=== PATIENT | female | born 1960 | race Caucasian/White ===

== ENCOUNTER 2017-06-17 10:58 | Emergency (ER) ==
[2017-06-17 11:03] VITALS: BP 165/76; TEMP 98.9; BMI 37.5
[2017-06-17 11:37] LABS: BASOPHILS % (AUTO) 0.6 % (0.0-3.0); EOSINOPHILS # (AUTO) 0.1 K/ul (0.0-0.7); EOSINOPHILS % (AUTO) 2.3 % (0.0-7.0); HEMATOCRIT 37.2 % (37.0-47.0); HEMOGLOBIN 12.6 g/dl (12.0-16.0); IMMATURE GRANULOCYTE % (AUTO) 0.2 % (0.0-5.0); LYMPHOCYTES # (AUTO) 1.7 K/uL (0.60-3.4); LYMPHOCYTES % (AUTO) 34.4 (10.0-50.0); MEAN CORPUSCULAR HGB CONC 33.9 (31.8-35.4); MEAN CORPUSCULAR VOLUME 88.6 fl (81.0-99.0); MONOCYTES # (AUTO) 0.5 K/uL (0.4-2.0); MONOCYTES % (AUTO) 10.9 (0-10); NEUTROPHILS # (AUTO) 2.5 K/ul (2.0-6.9); NEUTROPHILS % (AUTO) 51.6; PLATELET COUNT 216 10^3/uL (140-440); WHITE BLOOD COUNT 4.86 K/ul (4.6-10.2)
[2017-06-17 11:38] LABS: ADD URINE MICROSCOPIC NO; BILIRUBIN,URINE Negative (NEGATIVE); KETONES,URINE Negative (NEGATIVE); LEUKOCYTE ESTERASE ,URINE Negative (NEGATIVE); NITRITE,URINE Negative (NEGATIVE); PH,URINE 5.5 (5-9); PROTEIN,URINE Negative (NEGATIVE); URINE, BLOOD Negative (NEGATIVE)
[2017-06-17 12:06] LABS: ERYTHROCYTE SEDIMENTATION RATE 13 mm/hr (0-20); ESR INTERNAL QC INTERNAL QC VALID
--- NOTE | 2017-06-17 12:10 | CT ---
EXAM: CT abdomen pelvis without contrast TECHNIQUE: Helical axial CT of the abdomen and pelvis was performed without contrast with coronal an d sagittal reconstructions. COMPARISON: CT abdomen pelvis from 08/21/2049 HISTORY: Abdominal pain FINDINGS: There is no acute abnormality. Specifically there is no mesenteric inflammation, free air, free fluid or bowel wall thickening or edema or pathologic lymph nodes or obstruction or ileus. The liver, spleen, pancreas,and adrenal glands show no acute abnormality. Lung bases are well-aerate d. There is no hiatal hernia. There has been prior cholecystectomy. There is no biliary or pancreati c ductal dilatation. There are no suspicious renal masses or large cysts and no hydronephrosis. There are no kidney stones . Both ureters demonstrate normal course and caliber. There is no filling defect in the urinary blad shaun. The bladder is decompressed. There has been prior hysterectomy. There are pelvic phleboliths. The appendix is not seen. There are no significant colonic diverticula. There are no abdominal wall hernias. There is calcific atherosclerosis of the aorta. There are no acute osseous abnormalities. IMPRESSION: 1. No definite acute abnormality in the abdomen or pelvis. Specifically there is no free fluid or i nflammation or free air or bowel obstruction or ileus. 2. Prior cholecystectomy and prior hysterectomy. 3. Appendix is not visualized. Please correlate with history of possible appendectomy.
[2017-06-17 12:13] LABS: ALANINE AMINOTRANSFERASE 13 U/L (12-78); ALBUMIN 3.1 g/dL (3.4-5.0); ALBUMIN/GLOBULIN RATIO 0.79; ALKALINE PHOSPHATASE 102 U/L (42-98); AMYLASE 26 U/L (25-115); ANION GAP 13.5; ASPARTATE AMINO TRANSFERASE 36 U/L (15-37); BILIRUBIN,TOTAL 0.27 mg/dL (0.00-1.20); BLOOD UREA NITROGEN 24 mg/dL (7-18); BUN/CREATININE RATIO 22.64; CALCIUM 8.4 mg/dL (8.2-10.2); CARBON DIOXIDE 26 mmol/L (21-32); CHLORIDE 104 mmol/L (98-107); CREATINE KINASE 192 U/L; CREATININE 1.06 mg/dL (0.60-1.30); GLUCOSE 129 mg/dL (70-110); LIPASE 22 U/L (8-78); POTASSIUM 3.5 mmol/L (3.5-5.10); SODIUM 140 mmol/L (136-145)
[2017-06-17 12:14] LABS: CREATINE KINASE MB 1.7 ng/ml (0.0-3.6)
--- NOTE | 2017-06-17 12:20 | ED.PDOC ---
General ED Provider: Dr. KEATON PALACIOS-ER Chief Complaint: Abdominal Pain Stated Complaint: i had to strain hard to get my bowels to move Time Seen by Physician: 11:00 Mode of Arrival: Walk-In Information Source: Patient Exam Limitations: No limitations Primary Care Provider: SALINA OVIEDO Nursing and Triage Documentation Reviewed and Agree: Yes GI Complaint Exam - Abdominal Pain Complaint/Exam Onset: Gradual Duration: 3 days Symptoms Are: Still present Timing: Intermittent Initial Severity: Mild Current Severity: Moderate Location of Pain: Diffuse Character: Reports: Dull, Aching Aggravating: Reports: None Alleviating: Reports: Spontaneous resolution Associated Signs and Symptoms: Reports: Constipation Related Surgical History: Reports: Cholecystectomy, Appendectomy, DIANA, BSO Patient Rh Status: Unknown Quality Indicator For Non-Traumatic Chest Pain/Syncope: EKG Performed Review of Systems - Review Of Systems Constitutional: Reports: No symptoms Eyes: Reports: No symptoms Ears, Nose, Mouth, Throat: Reports: No symptoms Respiratory: Reports: No symptoms Cardiac: Reports: No symptoms GI: Reports: Constipated : Reports: No symptoms Musculoskeletal: Reports: No symptoms Skin: Reports: No symptoms Neurological: Reports: No symptoms Endocrine: Reports: No symptoms Hematologic/Lymphatic: Reports: No symptoms All Other Systems: Reviewed and Negative Past Medical History - Past Medical History Previously Healthy: Yes Endocrine: Reports: DM 2 Cardiovascular: Reports: Hypertension Respiratory: Reports: None Hematological: Reports: None Gastrointestinal: Reports: None Genitourinary: Reports: None Neuro/Psych: Reports: Anxiety, Depression Musculoskeletal: Reports: Other Cancer: Reports: None Last Menstrual Period: HYSTERECTOMY Other Pertinent Past Medical History: Arthritis, Mobid obesity - Surgical History General Surgical History: Reports: Hysterectomy, Cholecystectomy, Orthopedic ( lumbar and cervical spine surg, Surg Right elbow) - Family History Family History: Reports: None - Social History Smoking Status: Former smoker Hx Substance Use: No Alcohol Screening: None Lives: With family Physical Exam - Physical Exam Appearance: Well-appearing, No pain distress, Well-nourished Eyes: EMERALD, EOMI, Conjunctiva clear ENT: Ears normal, Nose normal, Oropharynx normal Neck: Supple Respiratory: Airway patent, Breath sounds clear, Breath sounds equal, Respirations nonlabored Cardiovascular: RRR GI/: Soft, Nontender, No masses, Bowel sounds normal, No Organomegaly Musculoskeletal: Normal strength, ROM intact, No edema, No calf tenderness Skin: Warm, Dry, Normal color Neurological: Sensation intact Psychiatric: Affect appropriate, Mood appropriate Interpretation - Radiology Interpretation Radiology Interpretation By: Radiologist Radiology Results: Negative Exam Interpreted: CT Scan - EKG Interpretation Time of EKG #1: 12:20 Rate: Normal Rhythm: Sinus Ectopy: None [place]: NL ST Segment: Normal Critical Care Note - Critical Care Note Total Time (mins): 0 Course - Course Hematology/Chemistry: 06/17/17 11:30 06/17/17 11:30 Orders, Labs, Meds: Lab Review 06/17/17 06/17/17 06/17/17 11:30 11:30 11:30 WBC 4.86 RBC 4.20 Hgb 12.6 Hct 37.2 MCV 88.6 MCH 30.0 MCHC 33.9 RDW Coeff of Ellen 12.7 Plt Count 216 Immature Gran % (Auto) 0.2 Neut % (Auto) 51.6 Lymph % (Auto) 34.4 Bowie % (Auto) 10.9 H Eos % (Auto) 2.3 Baso % (Auto) 0.6 Immature Gran # (Auto) 0.0 Neut # 2.5 Lymph # 1.7 Bowie # 0.5 Eos # 0.1 Baso # 0.0 ESR 13 Sodium 140 Potassium 3.5 Chloride 104 Carbon Dioxide 26 Anion Gap 13.5 BUN 24 H Creatinine 1.06 Estimated GFR (MDRD) 54.00 BUN/Creatinine Ratio 22.64 Glucose 129 H Calcium 8.4 Total Bilirubin 0.27 AST 36 ALT 13 Alkaline Phosphatase 102 H Total Creatine Kinase 192 CK-MB (CK-2) 1.7 CK-MB (CK-2) % 0.92860 Troponin I < 0.0100 Total Protein 7.0 Albumin 3.1 L Globulin 3.9 Albumin/Globulin Ratio 0.79 Amylase 26 Lipase 22 Urine Color Yellow Urine Clarity Clear Urine pH 5.5 Ur Specific [place] 1.015 Urine Protein Negative Urine Glucose (UA) Negative Urine Ketones Negative Urine Blood Negative Urine Nitrite Negative Urine Bilirubin Negative Urine Urobilinogen 0.2 Ur Leukocyte Esterase Negative Orders Category Date Time Status EKG-(ED ONLY) Stat CARDIO 06/17/17 11:09 Completed AMYLASE Stat LAB 06/17/17 11:30 Completed CBC W/ AUTO DIFF Stat LAB 06/17/17 11:30 Completed COMPREHENSIVE METABOLIC PANEL Stat LAB 06/17/17 11:30 Completed CREATINE KINASE Stat LAB 06/17/17 11:30 Completed ESR Stat LAB 06/17/17 11:30 Completed LIPASE Stat LAB 06/17/17 11:30 Completed TROPONIN I Stat LAB 06/17/17 11:30 Completed URINALYSIS C & S IF INDICATED Stat LAB 06/17/17 11:[address] ABDOMEN/PELVIS WO CONTRAST Stat RADS 06/17/17 11:09 Completed Vital Signs: Temp Pulse Resp BP Pulse Ox 06/17/17 10:59 98.9 F 94 H 20 165/76 H 97 Departure - Departure Time of Disposition: 12:20 Disposition: HOME SELF-CARE Discharge Problem: Constipation Qualifiers: Constipation type: unspecified constipation type Qualified Code(s): K59.00 - Constipation, unspecified Instructions: Constipation (ED), High Fiber Diet (ED) Condition: Good Pt referred to PMD for follow-up: Yes Additional Instructions: miralax 17gr q daily=--f/u with pcp and discuss colonoscopy Allergies/Adverse Reactions: Allergies propoxyphene napsylate [From Darvocet-N 100] Adverse Reaction (Verified 11:03) acromycin Adverse Reaction (Uncoded 06/17/17 11:03) Home Medications: Ambulatory Orders Aspirin [Aspirin Chewable] 81 mg PO DAILYWM 11/29/13 Dicyclomine HCl [Bentyl] 10 mg PO BID 11/29/13 Diphenhydramine HCl [Benadryl] 50 mg PO BEDTIME 11/29/13 Oxycodone HCl/Acetaminophen [Endocet 10-325 mg Tablet] 1 each PO QID 11/29/13 Lisinopril/Hydrochlorothiazide [Lisinopril-Hctz 10-12.5 mg Tab] 1 each PO DAILY 08/21/14 Topiramate [Topamax] 50 mg PO BEDTIME 05/13/15 Amlodipine Besylate 5 mg PO DAILY 06/17/17 Clonazepam [Klonopin] 1 mg PO DAILY 06/17/17 Lamotrigine [Lamictal] 25 mg PO DAILY 06/17/17 Tizanidine HCl [Zanaflex] 4 mg PO DAILY 06/17/17 Venlafaxine HCl [Effexor] 75 mg PO DAILY 06/17/17 Disposition Discussed With: Patient
== END 2017-06-17 12:31 | disposition home or self-care (01) ==
LOC: ED 10:58
DX: K59.00 Constipation, unspecified (principal); R10.84 Generalized abdominal pain; E11.9 Type 2 diabetes mellitus without complications; I10 Essential (primary) hypertension; Z79.899 Other long term (current) drug therapy
CPT/HCPCS: 36415; 80053; 81001; 82150; 82550; 82553; 83690; 84484; 85025; 85651; 93005; 93010; 99283

== ENCOUNTER 2018-02-18 16:20 | Emergency (ER) | payer OTHER ==
[2018-02-18 16:28] VITALS: BP 166/114; TEMP 99.1; BMI 40.4
--- NOTE | 2018-02-18 17:21 | ED.PDOC ---
General ED Provider: Dr. KD BLACKMON Chief Complaint: Elbow Pain/Injury Stated Complaint: elbow pain right Time Seen by Physician: 16:20 Mode of Arrival: Walk-In Information Source: Patient Exam Limitations: No limitations Primary Care Provider: SALINA OVIEDO Nursing and Triage Documentation Reviewed and Agree: Yes Does patient meet sepsis criteria?: No If yes, has appropriate treatment been initiated?: No System Inflammatory Response Syndrome: Not Applicable Sepsis Protocol: For patient's 13 years and over: Temp is 96.8 and below OR 101 and greater Pulse >90 BPM Resp >20/minute Acutely Altered Mental Status Are patient's symptoms suggestive of a new infection, such as: -Pneumonia -Skin, Soft Tissue -Endocarditis -UTI -Bone, Joint Infection -Implantable Device -Acute Abdominal Infection -Wound Infection -Meningitis -Blood Stream Catheter Infection -Unknown Musculoskeletal Complaint Exam - Elbow Pain Complaint/Exam Mechanism of Injury: Reports: No known trauma Onset/Duration: 1 day Symptoms Are: Still present (prior history of elbow surgery years ago) Onset of Pain: Reports: Hours Initial Severity: Mild Current Severity: Mild Location: Reports: Discrete Character: Reports: Aching, Throbbing, Spasmodic Alleviating: Reports: Immobilization Aggravating: Reports: Movement Associated Signs and Symptoms: Denies: Swelling, Redness, Bruising, Fever, Weakness, Numbness, Tingling Related Surgical History: Reports: None Elbow Findings: Absent: Swelling, Ecchymosis, Abnormal contour, Rotation, Ligamentous instability, Laceration, Erythema, Warmth, Blisters, Other joint pain, Foreign body Tenderness: Present: Lateral Condyle Limited Range of Motion: Present: Flexion, Extension, Pronation, Supination Differential Diagnoses: Bursitis Review of Systems - Review Of Systems Constitutional: Reports: No symptoms Eyes: Reports: No symptoms Ears, Nose, Mouth, Throat: Reports: No symptoms Respiratory: Reports: No symptoms Cardiac: Reports: No symptoms GI: Reports: No symptoms : Reports: No symptoms Musculoskeletal: Reports: Joint pain (elbow) Skin: Reports: No symptoms Neurological: Reports: No symptoms Endocrine: Reports: No symptoms Hematologic/Lymphatic: Reports: No symptoms All Other Systems: Reviewed and Negative Past Medical History - Past Medical History Previously Healthy: Yes Endocrine: Reports: DM 2 Cardiovascular: Reports: Hypertension Respiratory: Reports: None Hematological: Reports: None Gastrointestinal: Reports: None Genitourinary: Reports: None Neuro/Psych: Reports: Anxiety, Depression Musculoskeletal: Reports: Other Cancer: Reports: None Last Menstrual Period: none Other Pertinent Past Medical History: Arthritis, Mobid obesity - Surgical History General Surgical History: Reports: Hysterectomy, Cholecystectomy, Orthopedic ( lumbar and cervical spine surg, Surg Right elbow) - Family History Family History: Reports: None - Social History Smoking Status: Former smoker Hx Substance Use: No Alcohol Screening: None Physical Exam - Physical Exam Appearance: Well-appearing, No pain distress, Well-nourished Eyes: EMERALD, EOMI, Conjunctiva clear ENT: Ears normal, Nose normal, Oropharynx normal Respiratory: Airway patent, Breath sounds clear, Breath sounds equal, Respirations nonlabored Cardiovascular: RRR, Pulses normal, No rub, No murmur GI/: Soft, Nontender, No masses, Bowel sounds normal, No Organomegaly Musculoskeletal: Limited ROM (elbow right sensation, circulation of the right upper ext is wnl) Skin: Warm, Dry, Normal color Neurological: Sensation intact, Motor intact, Reflexes intact, Cranial nerves intact, Alert, Oriented Psychiatric: Affect appropriate, Mood appropriate Critical Care Note - Critical Care Note Total Time (mins): 0 Course - Course Orders, Labs, Meds: Orders Category Date Time Status ELBOW, RIGHT MIN 3 VIEWS Stat RADS 02/18/18 17:01 Completed Vital Signs: Temp Pulse Resp BP Pulse Ox 02/18/18 16:20 99.1 F 101 H 20 166/114 H 96 Departure - Departure Time of Disposition: 18:00 Disposition: HOME SELF-CARE Discharge Problem: Elbow joint pain Elbow pain Qualifiers: Laterality: unspecified laterality Qualified Code(s): M25.529 - Pain in unspecified elbow Instructions: Arthralgia (ED) Condition: Good Pt referred to PMD for follow-up: Yes IPMP verified?: No Additional Instructions: Please call your Family Physician as soon as possible to schedule a follow-up appointment.Please call your Family Physician as soon as possible to schedule a follow-up appointment.Please call your Family Physician as soon as possible to schedule a follow-up appointment. Allergies/Adverse Reactions: Allergies propoxyphene napsylate [From Darvocet-N 100] Adverse Reaction (Verified 16:25) acromycin Adverse Reaction (Uncoded 06/17/17 11:03) Home Medications: Ambulatory Orders Aspirin [Aspirin Chewable] 81 mg PO DAILYWM 05/17/14 Dicyclomine HCl [Bentyl] 10 mg PO BID 11/29/13 Oxycodone HCl/Acetaminophen [Endocet 10-325 mg Tablet] 1 each PO QID 11/29/13 Lisinopril/Hydrochlorothiazide [Lisinopril-Hctz 10-12.5 mg Tab] 1 each PO DAILY 08/21/14 Amlodipine Besylate 5 mg PO DAILY 06/17/17 Clonazepam [Klonopin] 1 mg PO BID PRN 06/17/17 Venlafaxine HCl [Effexor] 75 mg PO DAILY 06/17/17 Disposition Discussed With: Patient
--- NOTE | 2018-02-18 17:54 | DI ---
EXAM: Three views of the right elbow HISTORY: Pain with history of surgery with. COMPARISON: Right elbow x-ray 04/15/2012 FINDINGS: The internal fixation hardware of the proximal radius is normal. There is no evidence of h ardware fracture. There is some minimal lucency at the tip of the implant. There is degenerative ch maegan of the right elbow. Soft tissues are unremarkable. IMPRESSION: 1. Internal fixation hardware in the proximal radius with minimal lucency at the tip of the implant, which has mildly worsened since 2011. This may represent hardware loosening. 2. Degenerative disease of the right elbow.
== END 2018-02-18 18:22 | disposition home or self-care (01) ==
LOC: ED 16:20
DX: M25.521 Pain in right elbow (principal)
CPT/HCPCS: 99282

== ENCOUNTER 2018-09-12 14:36 | Emergency (ER) ==
[2018-09-12 14:43] VITALS: BP 145/92; TEMP 98.7; BMI 38.5
--- NOTE | 2018-09-12 15:07 | ED.PDOC ---
General ED Provider: Dr. KEATON TARANGO Chief Complaint: Extremity Pain/Injury Stated Complaint: Fell at home injurying her Rt Shoulder, arm, elbow and wrist. Has previously injured her rt elbow and required ORIF of fracture site. Time Seen by Physician: 14:45 Mode of Arrival: Walk-In Information Source: Patient Exam Limitations: Clinical condition Nursing and Triage Documentation Reviewed and Agree: Yes Does patient meet sepsis criteria?: No System Inflammatory Response Syndrome: Not Applicable Sepsis Protocol: For patient's 13 years and over: Temp is 96.8 and below OR 101 and greater Pulse >90 BPM Resp >20/minute Acutely Altered Mental Status Are patient's symptoms suggestive of a new infection, such as: -Pneumonia -Skin, Soft Tissue -Endocarditis -UTI -Bone, Joint Infection -Implantable Device -Acute Abdominal Infection -Wound Infection -Meningitis -Blood Stream Catheter Infection -Unknown Review of Systems - Review Of Systems Constitutional: Reports: No symptoms Eyes: Reports: No symptoms Ears, Nose, Mouth, Throat: Reports: No symptoms Respiratory: Reports: No symptoms Cardiac: Reports: No symptoms GI: Reports: No symptoms : Reports: No symptoms Musculoskeletal: Reports: Joint pain, Muscle pain Skin: Reports: No symptoms Neurological: Reports: No symptoms Endocrine: Reports: No symptoms Hematologic/Lymphatic: Reports: No symptoms All Other Systems: Reviewed and Negative Past Medical History - Past Medical History Previously Healthy: Yes Endocrine: Reports: DM 2 Cardiovascular: Reports: Hypertension Respiratory: Reports: None Hematological: Reports: None Gastrointestinal: Reports: None Genitourinary: Reports: None Neuro/Psych: Reports: Anxiety, Depression Musculoskeletal: Reports: Other Cancer: Reports: None Last Menstrual Period: hysterectomy Other Pertinent Past Medical History: Arthritis, Mobid obesity - Surgical History General Surgical History: Reports: Hysterectomy, Cholecystectomy, Orthopedic ( lumbar and cervical spine surg, Surg Right elbow) - Family History Family History: Reports: None - Social History Smoking Status: Former smoker Hx Substance Use: No Alcohol Screening: None Physical Exam - Physical Exam Appearance: Ill-appearing, Obese Ill-appearing: None Pain Distress: Moderate Eyes: EMERALD, EOMI, Conjunctiva clear ENT: Ears normal, Nose normal, Oropharynx normal Neck: Supple Respiratory: Airway patent, Breath sounds clear, Breath sounds equal, Respirations nonlabored Cardiovascular: RRR, Pulses normal, No rub, No murmur GI/: Soft, Nontender, No masses, Bowel sounds normal, No Organomegaly Musculoskeletal: Limited ROM, Limited strength, Edema (Rt shoulder) Skin: Warm, Dry, Normal color Neurological: Sensation intact, Motor intact, Reflexes intact, Cranial nerves intact, Alert, Oriented Psychiatric: Affect appropriate, Mood appropriate Interpretation - Radiology Interpretation Radiology Interpretation By: Radiologist (all xrays neg for acute injury) Critical Care Note - Critical Care Note Total Time (mins): 0 Course - Course Orders, Labs, Meds: Orders Category Date Time Status Ketorolac Tromethamine [Toradol] MEDS 09/12/18 15:15 Discontinued 30 mg IM ONCE STA ELBOW, RIGHT MIN 3 VIEWS Stat RADS 09/12/18 15:29 Completed SHOULDER, RIGHT MIN 2V Stat RADS 09/12/18 15:29 Completed WRIST, RIGHT 3 VIEWS Stat RADS 09/12/18 15:29 Completed Medications Discontinued Medications Generic Name Dose Route Start Last Admin Trade Name Freq PRN Reason Stop Dose Admin Ketorolac Tromethamine 30 mg 09/12/18 15:15 09/12/18 15:35 Toradol IM 09/12/18 15:16 30 mg ONCE STA Administration Vital Signs: Temp Pulse Resp BP Pulse Ox 09/12/18 14:37 98.7 F 78 16 145/92 H 95 Departure - Departure Time of Disposition: 17:00 Disposition: HOME SELF-CARE Discharge Problem: Right shoulder strain, Contusion of wrist, right, Contusion of elbow, right Instructions: Musculoskeletal Pain (ED), Arthralgia (ED), Shoulder Pain (ED), Wrist Injury (ED) Condition: Good Pt referred to PMD for follow-up: Yes (1 weel) IPMP verified?: No Additional Instructions: Ice/ Shoulder sling Take Percocet at home 1 tab 2-3 times daily for relief of acute pain Ibuprofen 660 mg 4 times daily for relief of mod pain See PCP next week Allergies/Adverse Reactions: Allergies propoxyphene napsylate [From Darvocet-N 100] Adverse Reaction (Verified 14:44) acromycin Adverse Reaction (Uncoded 06/17/17 11:03) Home Medications: Ambulatory Orders Aspirin [Aspirin Chewable] 81 mg PO DAILYWM 11/29/13 Dicyclomine HCl [Bentyl] 10 mg PO BID 11/29/13 Oxycodone HCl/Acetaminophen [Endocet 10-325 mg Tablet] 1 each PO DAILY 11/29/13 Lisinopril/Hydrochlorothiazide [Lisinopril-Hctz 10-12.5 mg Tab] 1 each PO DAILY 08/21/14 Amlodipine Besylate 5 mg PO DAILY 06/17/17 Clonazepam [Klonopin] 1 mg PO BID PRN 06/17/17 Venlafaxine HCl [Effexor] 150 mg PO DAILY 06/17/17 Trazodone HCl 100 mg PO BEDTIME 09/12/18 Disposition Discussed With: Patient
[2018-09-12] MEDS ORDERED: TORADOL IM STA (15:15)
--- NOTE | 2018-09-12 15:59 | DI ---
EXAM: Three views of the right shoulder. History: Right shoulder pain and trauma. Findings: No acute fracture or dislocation. Mild narrowing of the right AC joint and right glenohum eral joint. Postsurgical changes of the cervical spine. No radiopaque foreign bodies. Impression: No acute osseous abnormality
--- NOTE | 2018-09-12 16:00 | DI ---
EXAM: Three views of the right elbow. History: Right elbow trauma. Comparison: Right elbow radiograph 02/18/2018 Findings: No acute fracture or dislocation. Stable lucency surrounding the hardware within the prox imal radius. No joint effusion is seen. Impression: 1. No acute osseous abnormality. 2. Stable hardware loosening.
--- NOTE | 2018-09-12 16:03 | DI ---
EXAM: Four views of the right wrist. History: Right wrist trauma. Findings: No acute fracture or dislocation. Mild polyarticular joint space narrowing. No abnormal calcifications or radiopaque foreign bodies. Impression: No acute osseous abnormality
== END 2018-09-12 17:30 | disposition home or self-care (01) ==
LOC: ED 14:36
DX: S46.911A Strain of unspecified muscle, fascia and tendon at shoulder and upper arm level, right arm, initial encounter (principal); S60.211A Contusion of right wrist, initial encounter; S50.01XA Contusion of right elbow, initial encounter; W19.XXXA Unspecified fall, initial encounter
CPT/HCPCS: 96372; 99283

== ENCOUNTER 2018-09-14 07:54 | Outpatient (CLI) | payer OTHER | END 2018-09-14 08:08 | disposition short-term general hospital (02) | LOC: AMBL 07:54 | PROVIDERS: ATTEND Emergency Medicine | DX: T42.4X2A Poisoning by benzodiazepines, intentional self-harm, initial encounter (principal); T46.4X2A Poisoning by angiotensin-converting-enzyme inhibitors, intentional self-harm, initial encounter; R53.83 Other fatigue ==

== ENCOUNTER 2018-12-11 09:55 | Outpatient (POV) | payer OTHER | END 2018-12-11 17:00 | LOC: OUTPT 09:55 | PROVIDERS: ATTEND Otolaryngology | DX: H91.90 Unspecified hearing loss, unspecified ear (principal) ==